=== PATIENT | female | born 1935 | race Caucasian/White ===

== ENCOUNTER 2016-09-07 07:53 | Emergency (ER) | payer MEDICARE, OTHER ==
[2016-09-07 08:38] LABS: BASO % 0.2 % (0.1-1.2); EOS # 0.2 10_X3_uL (0.0-0.4); EOS % 3.2 % (0.7-5.8); GRAN # 3.3 10_X3_uL (1.6-6.1); GRAN % 64.8 % (34.0-71.1); HEMOGLOBIN 12.9 g/dL (11.2-15.7); LYMPH # 1.1 10_X3_uL (1.2-3.7); LYMPH % 22.3 % (19.3-51.7); MEAN CORPUSCULAR HEMOGLOBIN 31.9 pg (27.0-33.0); MEAN CORPUSCULAR HGB CONC 33.9 g/dL (32.0-36.0); MEAN CORPUSCULAR VOLUME 93.8 fL (79-95); MEAN PLATELET VOLUME 9.3 fl (7.5-11.5); MONO # 0.5 10_X3_uL (0.2-0.9); MONO % 9.5 % (4.7-12.5); PLATELET COUNT 137 x10_3/uL (182-369); RED BLOOD COUNT 4.05 x10_6/uL (3.9-5.2); RED CELL DISTRIBUTION WIDTH 13.3 % (11.7-14.4); WHITE BLOOD COUNT 5.1 x10_3/uL (4.0-10.0)
[2016-09-07 08:55] LABS: BLOOD UREA NITROGEN 9 mg/dL (7-18); CARBON DIOXIDE 25 mmol/L (21-32); CREATINE KINASE 134 U/L (21-215); CREATININE 0.9 mg/dL (0.6-1.3); GLUCOSE,RANDOM 105 mg/dL (70-99); POTASSIUM 4.5 mmol/L (3.5-5.1); SODIUM 140 mmol/L (136-145)
[2016-09-07 08:58] LABS: PH,URINE 6.5 (5.0 - 9.0); URINE BILIRUBIN NEGATIVE (NEGATIVE); URINE BLOOD TRACE (NEGATIVE); URINE GLUCOSE (UA) NORMAL (NORMAL); URINE KETONE NEGATIVE (NEGATIVE); URINE LEUKOCYTE ESTERASE 1+ (NEGATIVE); URINE NITRATE NEGATIVE (NEGATIVE); URINE PROTEIN NEGATIVE (NEGATIVE); UROBILINOGEN NORMAL mg/dL (<1.0)
[2016-09-07 09:13] LABS: URINE RBC 0-5 /[HPF] (0-2); URINE WBC 0-5 /[HPF] (0-5)
== END 2016-09-07 09:31 | disposition home or self-care (01) ==
LOC: ER 07:53
PROVIDERS: Emergency Medicine
DX: J40 Bronchitis, not specified as acute or chronic (principal); F41.9 Anxiety disorder, unspecified; J44.9 Chronic obstructive pulmonary disease, unspecified; I48.91 Unspecified atrial fibrillation; I10 Essential (primary) hypertension; K21.9 Gastro-esophageal reflux disease without esophagitis; E03.9 Hypothyroidism, unspecified; G89.29 Other chronic pain; Z90.710 Acquired absence of both cervix and uterus; Z88.5 Allergy status to narcotic agent; Z79.899 Other long term (current) drug therapy; Z79.891 Long term (current) use of opiate analgesic; Z79.01 Long term (current) use of anticoagulants
CPT/HCPCS: 71020; 80048; 81001; 82550; 82553; 83880; 85025; 93005; 99070; 99283-25; 99284